=== PATIENT | male | born 2005 | race Native Hawaiian/Other Pacific Islander ===

== ENCOUNTER → 2023-10-11 | Emergency (ER) | payer OTHER ==
[~2023-10-11] VITALS: Ht 188 cm; Wt 116.1 kg
[~2023-10-11] MED LIST: HYDROCODON-ACE1 EA10 PO
[2023-10-11 09:24] LABS: HEMATOCRIT 41.7 % (35.0-50.0); HEMOGLOBIN 13.7 g/dL (12.0-18.0); MCH 28.2 (27-36); MCHC 32.9 g/dl (30-36); MCV 85.9 fl (81-99); PLATELET COUNT 266 K/uL (140-440); RBC 4.85 M/ul (4.3-5.7); RDW 13.7 (10.5-15.0)
[2023-10-11 09:38] LABS: BANDS, MANUAL DIFF 3; LYMPHOCYTES, MANUAL DIFF 14; MONOCYTES, MANUAL DIFF 1; NEUTROPHILS, MANUAL DIFF 82
[2023-10-11 09:40] LABS: ALBUMIN 3.6 g/dL (3.4-5.0); ALBUMIN/GLOBULIN RATIO 0.82 (1.1-2.4); ALCOHOL, MEDICAL <3 ng/dL (<3); ALKALINE PHOSPHATASE 96 U/L (46-116); ALT (SGPT) 26 U/L (14-59); ANION GAP 12.6 (7-21); AST (SGOT) 18 U/L (15-37); BILIRUBIN, TOTAL 0.7 ng/dL (0.2-1.0); BUN/CREATININE RATIO 8.24 (6.0-28.6); CALCIUM 8.9 mg/dL (8.5-10.1); CARBON DIOXIDE 30 mmol/L (21-32); CHLORIDE 102 mmol/L (98-107); CREATININE, SERUM 0.97 mg/dL (0.70-1.30); GLOMERULAR FILTRATION RATE,EST 115 mL/min (>60); POTASSIUM 3.6 mmol/L (3.5-5.1); UREA NITROGEN 8 mg/dL (7-18)
[2023-10-11 10:28] LABS: AMPHETAMINES, URINE NEGATIVE (NEGATIVE); BARBITURATES, URINE NEGATIVE (NEGATIVE); BENZODIAZEPINE, URINE NEGATIVE (NEGATIVE); BUPRENORPHINE, URINE NEGATIVE (NEGATIVE); CANNABINOID, URINE POSITIVE (NEGATIVE); COCAINE, URINE NEGATIVE (NEGATIVE); ECSTASY, URINE NEGATIVE (NEGATIVE); FENTANYL, URINE NEGATIVE (NEGATIVE); METHADONE, URINE NEGATIVE (NEGATIVE); OPIATES, URINE NEGATIVE (NEGATIVE); OXYCODONE, URINE NEGATIVE (NEGATIVE); PHENCYCLIDINE, URINE NEGATIVE (NEGATIVE)
[2023-10-11 10:38] LABS: ABO A; RH POSITIVE
[2023-10-11 10:39] LABS: ANTIBODY SCREEN NEGATIVE
[2023-10-11 11:31] LABS: BASOPHILS 0.4 % (0-2); EOSINOPHILS 0.6 % (0-6); HEMATOCRIT 37.9 % (35.0-50.0); HEMOGLOBIN 12.8 g/dL (12.0-18.0); LYMPHOCYTES 11.1 % (24-44); MCH 28.8 (27-36); MCHC 33.7 g/dl (30-36); MCV 85.5 fl (81-99); MONOCYTES 8.8 % (0-12); NEUTROPHILS 79.1 % (39-80); PLATELET COUNT 253 K/uL (140-440); RBC 4.44 M/ul (4.3-5.7); RDW 13.5 (10.5-15.0)
== END ==
LOC: ED 07:31
PROVIDERS: Emergency Medicine
DX: S20.211A Contusion of right front wall of thorax, initial encounter (principal); M25.511 Pain in right shoulder; M54.2 Cervicalgia; V89.2XXA Person injured in unspecified motor-vehicle accident, traffic, initial encounter
CPT/HCPCS: 36415; 71045; 71260; 72125; 73030; 74177; 80053; 80307; 85025; 86850; 86900; 86901; 99284-25; G0480; Q9967